=== PATIENT | female | born 1990 | race African-American/Black ===

== ENCOUNTER 2017-10-08 06:43 | Emergency (ER) | payer OTHER ==
[~2017-10-08] VITALS: Ht 165.1 cm; Wt 143.0 kg
[~2017-10-08 06:43] MED LIST: ALBU1AER INH; PENI500T PO
[2017-10-08 06:48] VITALS: BP 165/103; PULSE 94; RESP 16; TEMP 98; O2SAT 98
[2017-10-08 08:42] VITALS: BP 144/84; PULSE 90; RESP 16; O2SAT 98
--- NOTE | 2017-10-08 08:44 | PD ---
HPI Chief Complaint: Abdominal Pain Time Seen by Provider: 08:32 Travel History International Travel<30 days: No Contact w/Intl Traveler<30days: No Traveled to known affect area: No History of Present Illness HPI The patient is a 26-year-old -[place] female who presents to the emergency department for nausea, vomiting, and no bowel movement for several days. The patient states she developed what she thought was gastroenteritis earlier in the week. The patient was seen at urgent care on Wednesday and prescribed Zofran. The patient states she had some nausea and vomiting at that time which has improved, she is now able to tolerate oral intake. However, the patient states she occasionally gets epigastric abdominal pain and cramping, and feels like she needs to have a bowel movement. However, the patient states she is unable to have a bowel movement feels constipated. The patient took Dulcolax yesterday without any bowel movement. She denies any significant lower abdominal pain but does note fullness. She denies any previous abdominal surgeries or history of obstruction. Symptoms are moderate. The patient does state she had diarrhea earlier in the week, a few small episodes, but that has currently resolved. 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) ?: Not LMP: 10/04/17 : 0 Social History Alcohol Use: No Tobacco Use: No Substance Use: No Allergies-Medications (Allergen,Severity, Reaction): Coded Allergies: No Known Allergies (Verified Adverse Reaction, Unknown, 10/08/17) Reported Meds & Prescriptions Reported Meds & Active Scripts Active Bentyl (Dicyclomine HCl) 10 Mg Cap 10 Mg PO TID PRN Magnesium Citrate Liq (Magnesium Citrate) 300 Ml Liq 300 Ml PO ONCE Reported Singulair (Montelukast Sodium) 4 Mg Chew 4 Mg CHEW DAILY [med for HR ] PO BID Lisinopril 10 Mg Tab 10 Mg PO DAILY Review of Systems Except as stated in HPI: all other systems reviewed are Neg General / Constitutional: No: Fever Cardiovascular: No: Chest Pain or Discomfort Respiratory: No: Shortness of Breath Gastrointestinal: Positive: Nausea, Vomiting, Diarrhea (Few episodes earlier in the week which have resolved), Changes in Bowel Habits Genitourinary: No: Dysuria Physical Exam Narrative GENERAL: Awake, alert, pleasant 26-year-old female who appears her stated age and is in no acute respiratory distress. SKIN: Focused skin assessment warm/dry. HEAD: Atraumatic. Normocephalic. EYES: Pupils equal and round. No scleral icterus. No injection or drainage. ENT: No nasal bleeding or discharge. Mucous membranes pink and moist. NECK: Trachea midline. No JVD. CARDIOVASCULAR: Regular rate and rhythm. No murmur appreciated. RESPIRATORY: No accessory muscle use. Clear to auscultation. Breath sounds equal bilaterally. GASTROINTESTINAL: Abdomen soft, obese, minimal epigastric tenderness. No guarding or rigidity. No significant tympany noted. MUSCULOSKELETAL: No obvious deformities. No clubbing. No cyanosis. No edema. NEUROLOGICAL: Awake and alert. No obvious cranial nerve deficits. Motor grossly within normal limits. Normal speech. PSYCHIATRIC: Appropriate mood and affect; insight and judgment normal. Data Data Last Documented VS Vital Signs Date Time Temp Pulse Resp B/P (MAP) Pulse Ox O2 Delivery O2 Flow Rate FiO2 10/08/17 08:42 90 16 144/84 (104) 98 Room Air 10/08/17 06:48 98.0 Orders Orders Abdomen, Flat & Upright (10/08/17 ) [facility] Medical Decision Making Medical Screen Exam Complete: Yes Emergency Medical Condition: Yes Medical Record Reviewed: Yes Interpretation(s) Last Impressions Abdomen X-Ray 10/08/17 0000 Signed Impressions: CONCLUSION: Negative examination. Differential Diagnosis Differential diagnosis includes ileus, partial small bowel obstruction, constipation, gastroenteritis, dehydration. Narrative Course Flat and upright x-ray of the abdomen was ordered to evaluate for possible ileus /partial small bowel obstruction. X-ray of the abdomen is unremarkable, no evidence of ileus or small bowel obstruction. Patient will be placed on Bentyl for intra-abdominal cramping, will also be prescribed magnesium citrate, to take in 2-3 days if she still has no bowel movement, for possible constipation. She is advised to drink plenty fluids to stay hydrated and follow-up with her primary physician. Diagnosis Primary Impression: Abdominal pain Qualified Codes: R10.84 - Generalized abdominal pain Patient Instructions: General Instructions Additional Instructions: Medications as directed. Follow-up with your primary physician. Drink plenty of fluids to stay hydrated. Please provide the patient a copy of her x-ray results at discharge. Return if symptoms worsen or progress. Med/Other Pt SpecificInfo: Prescription(s) given Scripts Dicyclomine (Bentyl) 10 Mg Cap 10 MG PO TID Y for Bowel Management, #12 CAP 0 Refills Prov: Zander Finch MD 10/08/17 Magnesium Citrate Liq (Magnesium Citrate Liq) 300 Ml Liq 300 ML PO ONCE, #1 BOTTLE 0 Refills Prov: Zander Finch MD 10/08/17 Disposition: 01 DISCHARGE HOME Condition: Stable Zander Finch MD October 08, 2017 08:44
[2017-10-08] MEDS ORDERED: LISI10TA3 PO (08:45)
[2017-10-08] MEDS ORDERED: MONT4CHW2 CHEW (08:45)
[2017-10-08] MEDS ORDERED: [UNRECOGNIZED DRUG - OTHER] PO (08:45)
--- NOTE | 2017-10-08 09:37 | RADRPT ---
EXAM DATE: 10/08/2017 9:12 AM EDT AGE/SEX: 26 years / Female INDICATIONS: Nausea, vomiting, and constipation. No bowel movement in 5 days. CLINICAL DATA: This is the patient's initial encounter. Patient reports that signs and symptoms have been present for 4 - 6 days and indicates a pain score of 8/10. MEDICAL/SURGICAL HISTORY: Hypertension. Asthma. Tachycardia. None. COMPARISON: No prior [facility] exams available for comparison. FINDINGS: Supine and upright views of the abdomen were performed. The abdominal bowel gas pattern is normal. No air-fluid levels are seen. No abnormal masses, calcifications, or organomegaly is seen. The visualiz ed lower lungs are clear. No evidence of free intraperitoneal gas. The osseous structures are unremar kable. CONCLUSION: Negative examination. Electronically signed by: Zeyad Mayers MD 10/08/2017 9:36 AM EDT
[2017-10-08] MEDS ORDERED: MAGNSOL2 PO (09:43)
[2017-10-08] MEDS ORDERED: DICY10 PO (09:43)
== END 2017-10-08 10:01 | disposition home or self-care (01) ==
LOC: NEPE 06:43
DX: R10.84 Generalized abdominal pain (principal)
CPT/HCPCS: 74019; 99283